=== PATIENT | female | born 1955 | race Caucasian/White ===

== ENCOUNTER → 2016-12-22 | Outpatient (CLI) | payer OTHER ==
--- NOTE | 2016-12-22 18:41 | DX ---
Abdomen Single View at 13:40 hours Indication: Nephrolithiasis. Comparison: CT abdomen and pelvis dated December 13, 2016. Findings: A double-J right internalized ureteral stent has been placed since two weeks prior. The p roximal and distal end of the stent overlie the right renal pelvis and urinary bladder, respectively. A large 1.7 x 1.2cm calculus resides in the renal pelvis adjacent to the stent. A 1.0 x 0.6cm calc ulus overlies the lower pole left kidney. Additional, tiny 1 to 2mm calculi scattered throughout the right and left kidney are obscured by extensive constipation throughout the right and left hemicolon . Impression: 1. Well-positioned right ureteral stent. 2. Large right renal pelvis calculus and large lower pole left renal calculus are unchanged in posit ion. 3. Additional tiny intrarenal calculi are obscured by constipation.
== END ==
LOC: FIMAGING 13:32
PROVIDERS: ATTEND Specialist
DX: N20.0 Calculus of kidney (principal); K59.00 Constipation, unspecified

== ENCOUNTER 2016-12-31 11:59 | Observation (INO) | payer OTHER ==
[2016-12-31] MEDS ORDERED: DEXMEDETOMIDINE HCL 200 MCG in NS 50 ML IV ONE (12:30)
[2016-12-31] MEDS ORDERED: NS 1,000 ML IV SCH (12:30)
[2016-12-31] MEDS ORDERED: MIDAZOLAM 2 MG/2 ML VIAL ONE (13:35)
[2016-12-31] MEDS ORDERED: fentaNYL 100 MCG/2 ML INJ ONE (13:36)
[2016-12-31] MEDS ORDERED: ACETAMINOPHEN 325 MG TAB PO PRN (15:20)
[2016-12-31] MEDS ORDERED: HYDROCODONE/APAP 5/325 TAB PO PRN (15:20)
[2016-12-31] MEDS ORDERED: ONDANSETRON 4 MG/2 ML VIAL IVP PRN (15:21)
[2016-12-31] MEDS ORDERED: ATROPINE SULFATE 1 MG/10 ML SYR ONE (19:05)
[2017-01-01] MEDS ORDERED: levOFLOXACIN 500 MG/DEXTROSE 100 ML IV ONE (07:00)
[2017-01-01] MEDS ORDERED: MINERAL OIL 10 ML VIAL TP ONE (10:32)
[2017-01-01] MEDS ORDERED: IOPAMIDOL (ISOVUE-300) 100 ML BTL IV ONE (10:32)
[2017-01-01] MEDS ORDERED: NS 1,000 ML IV ONE (10:42)
[2017-01-01] MEDS ORDERED: LIDOCAINE 2% 100 MG/5 ML SYR IVP ONE (12:28)
[2017-01-01] MEDS ORDERED: PROPOFOL 200 MG/20 ML VIAL ONE (12:28)
[2017-01-01] MEDS ORDERED: fentaNYL 100 MCG/2 ML INJ ONE (12:28)
[2017-01-01] MEDS ORDERED: ROCURONIUM 100 MG/10 ML VIAL ONE (12:28)
[2017-01-01] MEDS ORDERED: ONDANSETRON 4 MG/2 ML VIAL ONE (12:28)
[2017-01-01] MEDS ORDERED: MIDAZOLAM 2 MG/2 ML VIAL ONE (12:32)
--- NOTE | 2017-01-01 14:13 | POSTOPPROG ---
Post Op Note Date of Operation: 01/01/17 Surgeon: Jessica Ellis (# [id number]) Anesthesia: GET(General Endotracheal) Pre-op Diagnosis: Large (18 mm) right renal pelvic calculus Post-op Diagnosis: Large (18 mm) right renal pelvic calculus Procedure: Right PCNL Findings: See op note Inf/Abcess present in the surg proc area at time of surgery?: No EBL: Minimal (< 50 cc) Complications: None Drains: Nephrostomy (right 14 Fr.) Specimen(s): Renal calculus fragments
[2017-01-01] MEDS ORDERED: PROMETHAZINE HCL 25 MG/ML INJ IVP PRN (14:15)
[2017-01-01] MEDS ORDERED: HYDROCODONE/APAP 5/325 TAB PO PRN (14:17)
[2017-01-01] MEDS ORDERED: ONDANSETRON 4 MG/2 ML VIAL IVP PRN (14:17)
--- NOTE | 2017-01-01 14:53 | GOP ---
[f rep st] OPERATIVE REPORT DATE OF OPERATION: 01/01/2017 SURGEON: Jessica Ellis MD ANESTHESIA: General endotracheal. PREOPERATIVE DIAGNOSIS: Approximately 18 mm right renal pelvic calculus, status post ureteral stent and nephrostomy tube placement. POSTOPERATIVE DIAGNOSIS: Approximately 18 mm right renal pelvic calculus, status post ureteral stent and nephrostomy tube placement. PROCEDURE PERFORMED: Right percutaneous nephrostolithotomy. FINDINGS: Approximately 18 mm right renal pelvic calculus, as noted above. There was also significant inflammatory changes of the renal pelvis mucosa, consistent with an existing longstanding renal calculus. SPECIMENS: Right renal calculus fragments. ESTIMATED BLOOD LOSS: Less than 50 cc. INDICATIONS: This woman recently had an indwelling right ureteral stent placed as result of a symptomatic 18 mm right renal pelvic calculus. She presents for definitive operative management by percutaneous nephrostolithotomy after undergoing percutaneous nephrostomy tube placement in Interventional Radiology yesterday. The indications for the procedures as well as potential risks and complications were discussed with the patient preoperatively. She appeared to understand, her questions were answered, and she wished to proceed. Written informed surgical consent was thereafter obtained. DESCRIPTION OF PROCEDURE: The patient was brought to the operating room and administered general endotracheal anesthesia. She was carefully placed in the prone position on the operating room table after placing a 16-Wallisian Arteaga catheter to gravity drainage without complication. The right-sided nephrostomy site was then sterilely prepped and prepped in standard fashion. Dr. Castillo, with my assistance, then proceeded to dilate the working nephroscopic tract and placement of a working sheath. A 0.038 inch guidewire was placed down the ureter and advanced into the bladder under C-arm active fluoroscopy. This was to be used as a safety wire. An additional wire was placed in the right upper pole. Once the access sheath was in proper position, rigid nephroscopy was performed with the nephroscope. The calculus was seen within the renal pelvis. The ultrasonic Lithotripter was used to fragment the calculus. Approximately 3 dominant fragments were remaining, and these were removed with grasping forceps without complication. A couple of other tiny fragments were seen, and these were removed with grasping forceps successfully as well. There were no other fragments remaining at the conclusion of the case that were visualized. Similarly, under spot fluoroscopy, no residual calculus fragments could be seen. The nephroscope was removed. A 14-Wallisian nephrostomy tube was then placed over the working wire and advanced into the renal pelvis as noted on C- arm fluoroscopy. A pigtail on the end of the nephrostomy tube was created, and the working sheath had already been removed by this point. The nephrostomy tube was secured to the skin with a 2-0 silk suture, then dressed appropriately with a ski slope dressing, 4x4s, and Tegaderm. The nephrostomy tube was then irrigated with return of reddish urine without clots. The nephrostomy tube was connected to bag drainage. The patient was then turned back over to the supine position. She was extubated, transferred to her bed, then taken to the recovery room. She tolerated the procedure well overall. COMPLICATIONS: None. DISPOSITION: She was transferred to the recovery room in stable condition, and will be admitted overnight for postoperative care. /[id number]/MODL MTDD
[2017-01-01] MEDS: D5W 1/2 NS 1,000 ML IV SCH (17:25)
--- NOTE | 2017-01-01 18:24 | IR ---
Right Nephrostomy Tube Placement Intraoperative Tract Dilatation Indication: Intraoperative stone removal. Access was obtained yesterday via lower pole. Informed Consent: Obtained from the patient. Risks and benefits were discussed. Cross Cutting Measure: Patient's current list of medications including all known prescriptions, over -the-counters, herbals, and vitamin/mineral/dietary supplements are reviewed. Medications' name, dos age, frequency, and route of administration are confirmed. Patient is a non-smoker. Prophylactic Antibiotic: Cefazolin was not ordered and administered for antimicrobial prophylaxis be cause it was not medically necessary. VTE Prophylaxis: There is not an order for VTE prophylaxis to be given within 24 hours of the proced ure end time. VTE prophylaxis was not given because it was not medically necessary. Technique: Patient is placed in prone position. A "timeout" procedure was performed to identify the correct patient and the correct procedure. 1% Xylocaine was used for local anesthetic. All element s of maximal sterile barrier technique, including cap, mask, sterile gown, sterile gloves, large ster ile sheet, hand hygiene, and 2% chlorhexidine for cutaneous antisepsis, followed. Existing nephrostomy tube was removed over 0.035 wire. 7-Azerbaijani vascular sheath was advanced. Coaxia lly, a second wire is advanced, followed by a Kumpe catheter. Kumpe catheter guided the wire down th e bladder as a safety wire. There is a double-J ureteral stent in the ureter. A second wire was left in place in the right kidney. Over this wire, the tract was then dilated, and the access sheath was advanced to the renal pelvis. Dr. Ellis subsequently completed the stone removal case. Please see separate report for dictation. 14-Azerbaijani nephrostomy tube was then advanced into the renal pelvis. Contrast injection confirms sati sfactory placement of the pigtail in the renal pelvis. The safety wire in the ureter was then remove d. Fluoroscopy: 1.2 minutes. Seven images. Impressions 1. Intraoperative tract dilatation performed. 2. 14-Azerbaijani nephrostomy tube advanced into pelvis after stone removal. Plan: The patient is scheduled back in three days for check and pull of nephrostomy tube.
--- NOTE | 2017-01-01 18:24 | IR ---
Right Nephrostomy Tube Placement Intraoperative Tract Dilatation Indication: Intraoperative stone removal. Access was obtained yesterday via lower pole. Informed Consent: Obtained from the patient. Risks and benefits were discussed. Cross Cutting Measure: Patient's current list of medications including all known prescriptions, over -the-counters, herbals, and vitamin/mineral/dietary supplements are reviewed. Medications' name, dos age, frequency, and route of administration are confirmed. Patient is a non-smoker. Prophylactic Antibiotic: Cefazolin was not ordered and administered for antimicrobial prophylaxis be cause it was not medically necessary. VTE Prophylaxis: There is not an order for VTE prophylaxis to be given within 24 hours of the proced ure end time. VTE prophylaxis was not given because it was not medically necessary. Technique: Patient is placed in prone position. A "timeout" procedure was performed to identify the correct patient and the correct procedure. 1% Xylocaine was used for local anesthetic. All element s of maximal sterile barrier technique, including cap, mask, sterile gown, sterile gloves, large ster ile sheet, hand hygiene, and 2% chlorhexidine for cutaneous antisepsis, followed. Existing nephrostomy tube was removed over 0.035 wire. 7-Austrian vascular sheath was advanced. Coaxia lly, a second wire is advanced, followed by a Kumpe catheter. Kumpe catheter guided the wire down th e bladder as a safety wire. There is a double-J ureteral stent in the ureter. A second wire was left in place in the right kidney. Over this wire, the tract was then dilated, and the access sheath was advanced to the renal pelvis. Dr. Ellis subsequently completed the stone removal case. Please see separate report for dictation. 14-Austrian nephrostomy tube was then advanced into the renal pelvis. Contrast injection confirms sati sfactory placement of the pigtail in the renal pelvis. The safety wire in the ureter was then remove d. Fluoroscopy: 1.2 minutes. Seven images. Impressions 1. Intraoperative tract dilatation performed. 2. 14-Austrian nephrostomy tube advanced into pelvis after stone removal. Plan: The patient is scheduled back in three days for check and pull of nephrostomy tube.
[2017-01-02] MEDS: D5W 1/2 NS 1,000 ML IV SCH (02:06)
[2017-01-02 07:14] VITALS: BP 131/79; PULSE 81; RESP 18; TEMP 98.8; O2SAT 93
--- NOTE | 2017-01-02 09:08 | SOAPPROG ---
SOAP Progress Note Assessment/Plan: Assessment: POD 1 s/p right PCNL - doing well. Plan: Hopeful discharge today. Neph. tube removal in IR on Thursday FU w/ me in 4 weeks with renal u/s & KUB Subjective: No complaints. Objective: Vital Signs Temp Pulse Resp BP Pulse Ox 37.1 C 81 18 131/79 H 93 01/02/17 07:14 01/02/17 07:14 01/02/17 07:14 01/02/17 07:14 01/02/17 07:14 01/01/17 01/02/17 01/03/17 05:59 05:59 05:59 Intake Total 3196 Output Total 1470 425 Balance 1726 -425 Physical Exam - Physical Exam General Appearance: WD/WN, alert, no apparent distress Abdomen: non-tender, soft Back: Other (Neph. tube draining pink-tinged urine) Skin: normal color, warm/dry Extremities: non-tender, normal inspection Neuro/Psych: alert, normal mood/affect, oriented x 3 ICD10 Worksheet Patient Problems: Problems Problem Status Diagnosed Kidney stones Acute - ICD10 Problem Qualifiers (1) Kidney stones
[2017-01-07 17:55] LABS: SOURCE OF STONE RIGHT KIDNEY
[2017-01-07 17:58] LABS: NIDUS NOT OBSERVED
== END 2017-01-02 12:01 | disposition home or self-care (01) ==
LOC: UNDOADMOB 11:59 → F3E 11:59 → F1N 01-01 12:10
PROVIDERS: ADMIT Specialist; ATTEND Specialist
PROC: 0TC34ZZ Extirpation of Matter from Right Kidney Pelvis, Percutaneous Endoscopic Approach (ICD-10-PCS; principal; 2017-01-01 12:00)
PROC: 0T733DZ Dilation of Right Kidney Pelvis with Intraluminal Device, Percutaneous Approach (ICD-10-PCS; principal; 2017-01-01 12:00)
DX: N20.0 Calculus of kidney (principal)
CPT/HCPCS: 50080; 74485; 75984; C1729; C1769; C1894; G0378; 82365-90; C1725; J0461; J1644; J1956; J2001; J2250; J2405; J2704; J3010; Q9967

== ENCOUNTER 2016-12-31 13:03 | Day surgery (SDC) | payer OTHER ==
[2016-12-31] MEDS ORDERED: IOPAMIDOL (ISOVUE-300) 100 ML BTL IV ONE (14:09)
[2016-12-31] MEDS ORDERED: LIDOCAINE 1% 30 ML SDV ONE (14:09)
[2016-12-31] MEDS ORDERED: ONDANSETRON 4 MG/2 ML VIAL ONE (15:55)
[2016-12-31] MEDS ORDERED: HYDROCODONE/APAP 5/325 TAB ONE (15:55)
--- NOTE | 2016-12-31 19:13 | IR ---
Percutaneous Right Nephrostomy History: Stone in right renal pelvis, too large for extracorporeal shock wave lithotripsy. The patien t is scheduled for percutaneous nephrostolithotomy in the operating room, tomorrow. Consent: Risks and benefits of the procedure were discussed in detail, and informed consent was obta ined. The patient and her accepted risks of internal bleeding, sepsis, malposition of nephros amanda tube, and ALLERGIC reaction. Medications: Intravenous conscious sedation and analgesia were given under my supervision. Vital sign s, pulse oximetry, and electrocardiogram were monitored. The patient received 2 milligrams of Versed and 150 micrograms of fentanyl intravenously. She received intravenous Precedex at a maximum rate of 0.6 mcg/kg per hour. She received 0.5 mg of atropine intravenously. Prophylactic antibiotic: Levaquin 750 mg IV. Start time: 1340. End time: 1420. Fluoroscopy time in minutes: 3.8. Estimated exposure in milligray: 24.2. Technique: With the patient prone, the posterior right flank was prepped and draped in sterile fashio n. All elements of maximal sterile barrier technique were used, including cap, mask, sterile gown, st erile gloves, large sterile sheath, hand hygiene, and 2% chlorhexidine for cutaneous antisepsis. 1% X ylocaine was used for local anesthetic. Using multiplanar fluoroscopic guidance, a 21-gauge needle wa s inserted into the right renal pelvis, allowing opacification of the collecting system with dilute c ontrast. 0.018 wire was followed by 3-Grenadian dilator, which was left in place for additional opacific ation as needed. Then, lower pole calyx was selectively entered with a new 5-Grenadian microintroducer. 0.035 Amplatz wire was followed by 7, 9, and 11-Grenadian dilators. A 10-Grenadian multisidehole pigtail ne phrostomy tube was deployed. Locking string was secured. Stopcock, connecting tube, and collection ba g were connected. The catheter was secured to the skin with 0 silk suture as well as sterile adhesive dressing. Complication: Vagal reaction, manifest by nausea, clamminess, and hypotension. This responded to intr avenous atropine and intravenous fluids. Findings: Stone in the inferior aspect of right renal pelvis. Initial access is direct pelvic entry n ear the ureteropelvic junction, and some of the contrast appears outside of the collecting system. Th e nephrostomy tube is inserted through a separate access of a lower pole calyx, and the pigtail termi nates in the upper pole calyx of the right kidney. There is some extravasation inferiorly after passa ge of dilators. Ureteritis cystica is present. The upper end of ureteral stent is in the right renal pelvis. Impression: 1. Stone in right renal pelvis. 2. Selective 10-Grenadian right nephrostomy via lower pole calyx. - - - - - - - - - - - - - - - - - - - - - - - - - - - - - (PQRS measures: Current medications were listed in the medical record, including all known prescripti ons, lyej-big-xwryhbb medications, herbal medications, and nutritional supplements. Tobacco use: None . Prophylactic antibiotic: Levaquin 750 mg intravenously was given 1 hour prior to procedure and then discontinued. VTE prophylaxis: Unnecessary.)
== END 2016-12-31 16:30 | disposition home or self-care (01) ==
LOC: FIMAGING 13:03
PROVIDERS: ATTEND Specialist
PROC: 0T913ZZ Drainage of Left Kidney, Percutaneous Approach (ICD-10-PCS; principal; 2016-12-31 14:40)
DX: N20.0 Calculus of kidney (principal); Z88.0 Allergy status to penicillin
CPT/HCPCS: 50693; 99152; 99153; C1729; C1769; J1644; J2405; Q9967

== ENCOUNTER → 2017-01-05 | Day surgery (SDC) | payer OTHER ==
[~2017-01-05] MED LIST: IOPAMIDOL (ISOVUE-300) 100 ML BTL IV ONE
--- NOTE | 2017-01-05 19:24 | IR ---
Right Nephrostomy Check and Pull Indication: Post intraoperative stone removal. Double-J ureteral stent in place. Check and pull ne phrostomy tube. Informed Consent: Obtained from the patient. Risks and benefits were discussed. Cross Cutting Measure: Patient's current list of medications including all known prescriptions, over -the-counters, herbals, and vitamin/mineral/dietary supplements are reviewed. Medications' name, dos age, frequency, and route of administration are confirmed. Patient is a non-smoker. Prophylactic Antibiotic: Cefazolin was not ordered and administered for antimicrobial prophylaxis be cause it was not medically necessary. VTE Prophylaxis: There is not an order for VTE prophylaxis to be given within 24 hours of the proced ure end time. VTE prophylaxis was not given because it was not medically necessary. Technique: Patient is placed in prone position. A "timeout" procedure was performed to identify the correct patient and the correct procedure. 1% Xylocaine was used for local anesthetic. All elemen ts of maximal sterile barrier technique, including cap, mask, sterile gown, sterile gloves, large haleigh rile sheet, hand hygiene, and 2% chlorhexidine for cutaneous antisepsis, followed. Contrast was injected into the existing nephrostomy tube, showing lack of collecting system blood, an d rapid antegrade drainage into bladder via the stent. The nephrostomy tube is cut, and removed over a wire, making sure that the stent is not snagged. Fluoroscopy: 0.2 minutes, three images. Impression: 1. No residual collecting system blood. 2. Rapid antegrade drainage via stent. 3. Nephrostomy tube removed.
== END | disposition home or self-care (01) ==
LOC: FIMAGING 12:05
PROVIDERS: ATTEND Specialist
PROC: 0TP5X0Z Removal of Drainage Device from Kidney, External Approach (ICD-10-PCS; principal; 2017-01-05)
DX: N20.0 Calculus of kidney (principal)
CPT/HCPCS: Q9967

== ENCOUNTER → 2017-02-04 | Outpatient (CLI) | payer OTHER | LOC: FIMAGING 10:17 | PROVIDERS: ATTEND Specialist | DX: N20.0 Calculus of kidney (principal) ==

== ENCOUNTER → 2017-03-16 | Outpatient (CLI) | payer OTHER | LOC: FIMAGING 09:51 → FLAB 09:51 → EDSTATUS 10:21 | PROVIDERS: ATTEND Specialist | DX: N20.0 Calculus of kidney (principal) ==

== ENCOUNTER → 2017-05-25 | Outpatient (CLI) | payer OTHER | LOC: FIMAGING 09:12 | PROVIDERS: ATTEND Specialist | DX: N20.0 Calculus of kidney (principal) ==

== ENCOUNTER → 2017-09-29 | Outpatient (CLI) | payer OTHER | LOC: FIMAGING 15:03 | PROVIDERS: ATTEND Specialist | DX: N20.0 Calculus of kidney (principal) ==